=== PATIENT | female | born 1935 | race Caucasian/White ===

== ENCOUNTER 2016-06-16 14:31 | Outpatient (CLI) | payer MEDICARE, BC ==
[2009-04-07 04:56] VITALS: BP 143/79
[~2016-06-16] VITALS: Ht 162.6 cm; Wt 53.6 kg
[~2016-06-16 14:31] MED LIST: 00186-0370-20 IH; 00186-0372-20; 00186-0372-20 IH; ACIDOPHILUS PO; ACIDOPHILUS PRO1 CAP PO; AMITRIPTYLINE H10 M1 PO; AMLOPIDINE PO; ANTI-DIARRHEAL2 MG PO; ANTIVERT 12.512.5 MG PO; ASPIR-LOW81 MG PO; ASPIRIN 81M81 MG/TA2 PO; ASPIRIN E.C. 8181 MG PO; BREO IH; CALCITRIOL PO; CALCITROL; CALMOSEPTINE OI71 GM TP; CARAFATE S1 GM/10 ML PO; CARDIZEM 30MG T30 MG PO; CARDIZEM 60MG T60 MG PO; CARDIZEM120 MG PO; CEFTIN500 MG PO; CIPRO 500MG TA500 MG PO; CLOPIDOGREL PO; COBAL1000 MCG/M IM; COMBIVENT INH14.7 GM; COMBIVENT INH14.7 GM IH; CORDARONE200 MG/TAB PO; COUMADIN 5MG5 MG/TAB PO; CYANOCOBAL1000 MCG/1; CYANOCOBAL1000 MCG/1 SQ; CYANOJECT1000 MCG/M IM; DEMEROL 50M50 MG/TAB PO; DEMEROL50 MG/ML; DIPHENHYDRAMINE25 MG PO; DULCOLAX S10 MG/SUPP RC; ENGERIX B IM; ENGERIX-B20 MCG/ML IM; EPOGEN 2,002 MU/VIA1 IV; FOLIC ACID 11 MG/TA1 PO; FUROSEMIDE PO; GENTEAL 10 ML10 M1 OP; GENTEAL MILD 1515 M1 OP; GENTEAL OP; GENTEAL0.32 OP; HECTOROL0.5 MCG PO; IMODIUM 2MG CAPS2 MG PO; IRON; LASIX 40MG TABL40 MG PO; LEVAQUIN 2250 MG/TAB PO; LEVAQUIN 5500 MG/TA1 PO; LEVOTHYROXINE0.05 M1 PO; LEVOXYL0.05 MG PO; LIQUID MAGNESI400 MG PO; LOPRESSOR 225 MG/TAB PO; LOPRESSOR 550 MG/TAB PO; LOPRESSOR PO; LOPRESSOR100 MG PO; LOPRESSOR50 MG PO; MACRODANTIN; MAG-OX 400400 MG/TAB PO; MAGNESIUM OXID400 MG PO; MAGNESIUM OXID420 MG PO; MAGNESIUM OXIDE; MAGNESIUM OXIDE PO; MAGOX 400241.3 MG PO; MEPEREDINE50 MG PO; MEPERIDINE HCL50 MG PO; MILK OF MA400 MG/51 PO; MIRALAX PA17 GM/Dose PO; MONUROL 3 GM3 G/PKT PO; MYCELEX10 MG/TAB PO; NEPHROCAP PO; NEXIUM 40MG40 MG PO; NEXIUM PO; NEXIUM40 MG PO; NITRO-DUR0.4 MG/PAT TD; NITROQUICK0.4 MG SL; NITROSTAT0.4 MG/TAB SL; NORCO 325 MG-51 TAB PO; NORVASC 10MG10 MG PO; NORVASC10 MG PO; PACERONE400 MG PO; PHENERGAN 25 TA25 MG PO; PLAVIX 75MG TAB75 MG PO; POLY IRON PN1 TAB PO; POLY-IRON PO; PRILOSEC 20MG20 MG PO; PROLIA60 MG/ML SQ; Q-VAR INH; QUESTRAN4 GM/9 GM PO; REGLAN 5MG T5 MG/TAB PO; SYMBICORT1 AE2 IH; SYNTHROID0.05 MG PO; SYNTHROID0.05 MG/TA PO; SYSTANE LUBRICAN5 ML OP; THEOPHYLLINE; THEOPHYLLINE E100 MG PO; THYROID 0.23%1 POW; TIROSINT50 MCG PO; TOPROL XL 50MG50 MG PO; TOPROL XL100 MG PO; TOPROL XL50 MG PO; TUMS500 MG PO; TYLENOL 325MG325 MG PO; TYLENOL 500MG500 MG PO; ULTRAM 50MG TAB50 MG PO; VITAMIN B1100 MCG/ML IM; VITAMIN B11000 MCG/M IM; VITAMIN C BUFF500 MG PO; VITAMIN C500 MG PO; VITAMIN D PO; VITAMIN D1000 IU PO; VITAMIN D31 LIQ; VITAMIN D31 LIQ PO; VITAMIN D8000 IU/ML PO; XANAX .25M0.25 MG/TA PO; XOPENEX HF0.045 MG/A IH; ZEMPLAR1 MCG PO; ZOFRAN 4MG T4 MG/TAB PO; ZOFRAN ODT4 MG PO; ZOFRAN8 MG PO; ZUPLENZ4 M1 PO; ZYVOX 600MG600 MG PO; [UNRECOGNIZED DRUG - CODE] IV; [UNRECOGNIZED DRUG - CODE] IV; [UNRECOGNIZED DRUG - MIXTURE]; [UNRECOGNIZED DRUG - OTHER]; [UNRECOGNIZED DRUG - OTHER] TP
[2016-06-16 15:15] VITALS: BP 125/58; PULSE 85; TEMP 98.3
== END 2016-06-16 16:11 | disposition home or self-care (01) ==
LOC: EUO 14:31
DX: Z45.2 Encounter for adjustment and management of vascular access device (principal)
CPT/HCPCS: J1644

== ENCOUNTER → 2016-06-21 | Outpatient (CLI) | payer MEDICARE, BC ==
[~2016-06-21] MED LIST changes: +IBU400 MG PO; +SPIRIVA RE2.5 MCG/Ac IH
== END ==
LOC: COL.PUL 15:00
DX: R06.02 Shortness of breath (principal)

== ENCOUNTER 2016-06-28 00:11 | Inpatient (IN) | payer MEDICARE, BC ==
[2016-06-28] VITALS (7 sets, daily range): BP systolic 103–150; BP diastolic 50–90; PULSE 81–97; TEMP 97–99.6
[~2016-06-28] VITALS: Ht 162.6 cm; Wt 54.1 kg
[~2016-06-28 00:11] MED LIST changes: -IBU400 MG PO; -SPIRIVA RE2.5 MCG/Ac IH
[2016-06-28 01:03] LABS: BASO % 0.3 % (0.0-2.0); EOS % 0.9 % (0-4.0); GRAN # 2.8 (1.4-6.5); GRAN % 80.3 % (42.2-75.2); HEMATOCRIT 24.4 % (37.0-47.0); HEMOGLOBIN 8.3 g/dl (12.5-16.0); LYMPH # 0.2 (1.2-3.4); LYMPH % 6.8 % (20.0-51.0); MEAN CELL VOLUME 103 fl (80.0-100.0); MEAN CORPUSCULAR HEMOGLOBIN 35 pg (27.0-31.0); MEAN CORPUSCULAR HGB CONC 34 g/dl (33.0-37.0); MEAN PLATELET VOLUME 10.4 fl (7.4-10.4); MONO # 0.4 (0.1-0.6); MONO % 11.1 % (1.7-9.3); PLATELET COUNT 85 K/mm3 (130-400); RED BLOOD COUNT 2.38 M/mm3 (4.10-5.30); REDCELL DISTRIBUTION WIDTH-CV 12.9 % (11.5-14.5); WHITE BLOOD COUNT 3.5 K/mm3 (4.8-10.8)
[2016-06-28 01:39] LABS: ADJUSTED CALCIUM 9.1 mg/dL (8.4-10.2); ALANINE AMINOTRANSFERASE 35 U/L (9-52); ALBUMIN 3.7 gm/dL (3.5-5.0); ALKALINE PHOSPHATASE 120 U/L (50-136); ANION GAP 11 mmol/L (7-16); BILIRUBIN,TOTAL 0.8 mg/dL (0.0-1.0); BLOOD UREA NITROGEN 26 mg/dL (7-17); CALCIUM 8.9 mg/dL (8.4-10.2); CARBON DIOXIDE 35 mmol/L (22-30); CHLORIDE 92 mmol/L (98-107); CREATININE, serum 2.45 mg/dL (0.52-1.25); GLUCOSE 107 mg/dL (74-106); MAGNESIUM 1.7 mg/dL (1.6-2.3); PHOSPHOROUS 3.3 mg/dL (2.5-4.5); POTASSIUM 3.9 mmol/L (3.4-5.0); SODIUM 138 mmol/L (137-145); TOTAL PROTEIN 7.1 gm/dL (6.4-8.2)
[2016-06-28 01:46] LABS: C-REACTIVE PROTEIN < 0.5 mg/dL (0.0-0.9)
[2016-06-28 01:52] LABS: PH 8 (5-8); SQUAMOUS EPITHELIAL None Seen /hpf; URINE APPEARANCE Cloudy; URINE BACTERIA Rare /hpf; URINE BILIRUBIN Negative (NEGATIVE); URINE BLOOD 1+ (NEGATIVE); URINE COLOR Yellow; URINE GLUCOSE Negative (NEGATIVE); URINE KETONE Negative (NEGATIVE); URINE UROBILINOGEN Negative (NEGATIVE)
[2016-06-28] MEDS ORDERED: 00186-0370-20 IH (02:28)
[2016-06-29 02:29] VITALS: BP 108/47; PULSE 89; TEMP 98.5
[2016-06-29 07:49] LABS: BASO % 0.2 % (0.0-2.0); EOS # 0.1 (0.0-0.7); EOS % 1.6 % (0-4.0); GRAN # 3.4 (1.4-6.5); GRAN % 77.4 % (42.2-75.2); LYMPH # 0.4 (1.2-3.4); LYMPH % 8.8 % (20.0-51.0); MEAN CELL VOLUME 105 fl (80.0-100.0); MEAN CORPUSCULAR HGB CONC 33 g/dl (33.0-37.0); MEAN PLATELET VOLUME 10.6 fl (7.4-10.4); MONO # 0.5 (0.1-0.6); MONO % 11.5 % (1.7-9.3); PLATELET COUNT 93 K/mm3 (130-400); RED BLOOD COUNT 2.35 M/mm3 (4.10-5.30); REDCELL DISTRIBUTION WIDTH-CV 13.1 % (11.5-14.5); WHITE BLOOD COUNT 4.4 K/mm3 (4.8-10.8)
[2016-06-29 08:00] LABS: HEMATOCRIT 24.6 % (37.0-47.0); HEMOGLOBIN 8.1 g/dl (12.5-16.0); MEAN CORPUSCULAR HEMOGLOBIN 34 pg (27.0-31.0)
[2016-06-29 08:01] LABS: ALBUMIN 3.5 gm/dL (3.5-5.0); CALCIUM 8.7 mg/dL (8.4-10.2); CREATININE, serum 2.4 mg/dL (0.52-1.25); MAGNESIUM 1.8 mg/dL (1.6-2.3); POTASSIUM 3.3 mmol/L (3.4-5.0)
[2016-06-29 09:43] VITALS: BP 104/40; PULSE 87; TEMP 97.2
[2016-06-29 12:28] VITALS: BP 105/53; PULSE 88; TEMP 97.8
[2016-06-29 15:46] VITALS: BP 103/47; PULSE 85; TEMP 97.8
[2016-06-29 19:43] VITALS: BP 108/52; PULSE 86; TEMP 98.9
[2016-06-29 23:30] VITALS: BP 146/68; PULSE 84; TEMP 98.6
[2016-06-30] VITALS (9 sets, daily range): BP systolic 85–155; BP diastolic 44–75; PULSE 49–89; TEMP 97.1–99.9
[2016-06-30 07:44] LABS: BASO % 0.4 % (0.0-2.0); EOS # 0.1 (0.0-0.7); EOS % 3.4 % (0-4.0); GRAN # 1.7 (1.4-6.5); GRAN % 63.1 % (42.2-75.2); LYMPH # 0.4 (1.2-3.4); LYMPH % 15.4 % (20.0-51.0); MEAN CELL VOLUME 107 fl (80.0-100.0); MEAN CORPUSCULAR HGB CONC 33 g/dl (33.0-37.0); MEAN PLATELET VOLUME 11.1 fl (7.4-10.4); MONO # 0.5 (0.1-0.6); MONO % 17.3 % (1.7-9.3); PLATELET COUNT 86 K/mm3 (130-400); RED BLOOD COUNT 2.13 M/mm3 (4.10-5.30); REDCELL DISTRIBUTION WIDTH-CV 12.9 % (11.5-14.5); WHITE BLOOD COUNT 2.7 K/mm3 (4.8-10.8)
[2016-06-30 08:00] LABS: ALBUMIN 3.2 gm/dL (3.5-5.0); CALCIUM 8.4 mg/dL (8.4-10.2); CREATININE, serum 3.83 mg/dL (0.52-1.25); PHOSPHOROUS 5.3 mg/dL (2.5-4.5); POTASSIUM 3.8 mmol/L (3.4-5.0)
[2016-06-30 08:04] LABS: HEMATOCRIT 22.8 % (37.0-47.0); HEMOGLOBIN 7.4 g/dl (12.5-16.0); MEAN CORPUSCULAR HEMOGLOBIN 35 pg (27.0-31.0)
[2016-06-30 09:50] LABS: MAGNESIUM 1.7 mg/dL (1.6-2.3)
[2016-06-30 12:37] LABS: RETIC % 2.7 % (0.5-3.52)
[2016-07-01 00:39] VITALS: BP 137/73; PULSE 80; TEMP 96.6
[2016-07-01 03:43] VITALS: BP 128/65; PULSE 82; TEMP 96.8
[2016-07-01 07:35] LABS: MEAN CORPUSCULAR HGB CONC 34 g/dl (33.0-37.0); MEAN PLATELET VOLUME 10.8 fl (7.4-10.4); PLATELET COUNT 86 K/mm3 (130-400); RED BLOOD COUNT 3.04 M/mm3 (4.10-5.30); REDCELL DISTRIBUTION WIDTH-CV 16.9 % (11.5-14.5); WHITE BLOOD COUNT 3.3 K/mm3 (4.8-10.8)
[2016-07-01 07:43] LABS: ALBUMIN 3.3 gm/dL (3.5-5.0); CALCIUM 8.7 mg/dL (8.4-10.2); PHOSPHOROUS 6.2 mg/dL (2.5-4.5); POTASSIUM 3.9 mmol/L (3.4-5.0)
[2016-07-01 07:57] LABS: CREATININE, serum 4.72 mg/dL (0.52-1.25)
[2016-07-01 08:04] LABS: HEMATOCRIT 29.5 % (37.0-47.0); HEMOGLOBIN 10.1 g/dl (12.5-16.0); MEAN CELL VOLUME 97 fl (80.0-100.0); MEAN CORPUSCULAR HEMOGLOBIN 33 pg (27.0-31.0)
[2016-07-01 08:05] LABS: ADD PATHOLOGY DIFF REVIEW NO
[2016-07-01 09:01] LABS: BAND 5 % (0-10); PLATELET ESTIMATE DECREASED (NORMAL)
[2016-07-01 09:02] LABS: ANISOCYTOSIS 1+
[2016-07-01 09:05] LABS: EOSINOPHIL 2 % (0-4); NEUTROPHILS 66 % (42.0-75.2); TOTAL CELLS COUNTED 100
[2016-07-01 10:43] VITALS: BP 130/56; PULSE 78
[2016-07-01 13:12] LABS: ALBUMIN FRACTION 3.1 g/dL (2.6-4.5); ALPHA 1 FRACTION 0.4 g/dL (0.3-0.5); ALPHA 1 PERCENTAGE 6.5 % (3.4-8.3); ALPHA 2 FRACTION 0.7 g/dL (0.6-1.2); ALPHA 2 PERCENTAGE 12.1 % (8.4-17.5); BETA 1 FRACTION 0.3 g/dL (0.4-0.6); BETA 1 PERCENTAGE 5.3 % (5.4-8.9); BETA 2 FRACTION 0.3 g/dL (0.2-0.5); BETA 2 PERCENTAGE 5.2 % (3.8-7.7); GAMMA PERCENTAGE 17.9 % (8.1-23.0); SERUM PROTEIN TOTAL 5.8 g/dL (6.0-7.6)
[2016-07-01 16:16] VITALS: BP 118/54; PULSE 82; TEMP 98.4
[2016-07-01 19:51] VITALS: BP 138/73; PULSE 98; TEMP 98.4
[2016-07-02 00:09] VITALS: BP 161/71; PULSE 84; TEMP 98.2
[2016-07-02 03:44] VITALS: BP 149/65; PULSE 84; TEMP 98.6
[2016-07-02 07:45] LABS: BASO % 0.4 % (0.0-2.0); EOS # 0.1 (0.0-0.7); EOS % 4.4 % (0-4.0); GRAN # 1.6 (1.4-6.5); GRAN % 60.4 % (42.2-75.2); LYMPH # 0.5 (1.2-3.4); LYMPH % 18.5 % (20.0-51.0); MEAN CELL VOLUME 100 fl (80.0-100.0); MEAN CORPUSCULAR HGB CONC 33 g/dl (33.0-37.0); MEAN PLATELET VOLUME 10.6 fl (7.4-10.4); MONO # 0.4 (0.1-0.6); MONO % 15.9 % (1.7-9.3); PLATELET COUNT 108 K/mm3 (130-400); RED BLOOD COUNT 3.13 M/mm3 (4.10-5.30); REDCELL DISTRIBUTION WIDTH-CV 16.6 % (11.5-14.5); WHITE BLOOD COUNT 2.7 K/mm3 (4.8-10.8)
[2016-07-02 08:03] VITALS: BP 111/57; PULSE 78; TEMP 97.9
[2016-07-02 08:07] LABS: HEMATOCRIT 31.3 % (37.0-47.0); HEMOGLOBIN 10.3 g/dl (12.5-16.0); MEAN CORPUSCULAR HEMOGLOBIN 33 pg (27.0-31.0)
[2016-07-02 08:11] LABS: ALBUMIN 3.3 gm/dL (3.5-5.0); CALCIUM 8.7 mg/dL (8.4-10.2); CREATININE, serum 3.41 mg/dL (0.52-1.25); PHOSPHOROUS 4.3 mg/dL (2.5-4.5); POTASSIUM 3.9 mmol/L (3.4-5.0)
[2016-07-02 08:49] LABS: MAGNESIUM 1.7 mg/dL (1.6-2.3)
[2016-07-02 12:38] VITALS: BP 155/73; PULSE 80; TEMP 98.5
[2016-07-02] MEDS ORDERED: LEVAQUIN 5500 MG/TA1 PO (13:21)
[2016-07-02 15:24] LABS: KAPPA FREE LIGHT CHAIN-SERUM 16.4 mg/dL (()); KAPPA LAMBDA RATIO 1.86 (())
== END 2016-07-02 14:39 | disposition home or self-care (01) | DRG 689 ==
LOC: COL.ER 00:11 → MEDICAL 01:17
PROVIDERS: Emergency Medicine; Internal Medicine Nephrology
PROC: 5A1D60Z (ICD-10-PCS; principal; 2016-06-29)
DX: N39.0 Urinary tract infection, site not specified (principal); N18.6 End stage renal disease; I12.0 Hypertensive chronic kidney disease with stage 5 chronic kidney disease or end stage renal disease; K52.0 Gastroenteritis and colitis due to radiation; D61.818 Other pancytopenia; E46 Unspecified protein-calorie malnutrition; E03.9 Hypothyroidism, unspecified; Z88.0 Allergy status to penicillin; N13.30 Unspecified hydronephrosis; B96.1 Klebsiella pneumoniae [K. pneumoniae] as the cause of diseases classified elsewhere; D64.9 Anemia, unspecified; Z68.20 Body mass index [BMI] 20.0-20.9, adult; Z93.3 Colostomy status; Z99.2 Dependence on renal dialysis; Z85.41 Personal history of malignant neoplasm of cervix uteri
CPT/HCPCS: J0882; J1956; J2175; J2270; J2405; J2550; J2916; J7050; P9016

== ENCOUNTER 2016-08-11 14:54 | Outpatient (CLI) | payer MEDICARE, BC ==
[2009-04-07 04:56] VITALS: BP 143/79
[~2016-08-11] VITALS: Ht 162.6 cm; Wt 55.0 kg
[2016-08-11 15:30] VITALS: BP 127/59; PULSE 99; TEMP 97.7
== END 2016-08-11 15:31 | disposition home or self-care (01) ==
LOC: EUO 14:54
DX: Z45.2 Encounter for adjustment and management of vascular access device (principal)
CPT/HCPCS: J1644

== ENCOUNTER 2016-08-23 10:25 | Inpatient (IN) | payer MEDICARE, BC ==
[~2016-08-23] VITALS: Ht 162.6 cm; Wt 55.1 kg
[2016-08-23] MEDS ORDERED: SPIRIVA RE2.5 MCG/Ac IH (13:54)
[2016-08-23 14:18] VITALS: BP 128/80; PULSE 83; TEMP 96.9
[2016-08-23 16:16] VITALS: BP 137/65; PULSE 83; TEMP 96.5
[2016-08-23 16:27] LABS: BASO % 0.5 % (0.0-2.0); EOS % 0.5 % (0-4.0); GRAN # 3.3 (1.4-6.5); GRAN % 78.3 % (42.2-75.2); LYMPH # 0.5 (1.2-3.4); LYMPH % 11.2 % (20.0-51.0); MEAN CELL VOLUME 99 fl (80.0-100.0); MEAN CORPUSCULAR HGB CONC 35 g/dl (33.0-37.0); MEAN PLATELET VOLUME 11.1 fl (7.4-10.4); MONO # 0.4 (0.1-0.6); PLATELET COUNT 79 K/mm3 (130-400); RED BLOOD COUNT 2.55 M/mm3 (4.10-5.30); REDCELL DISTRIBUTION WIDTH-CV 13.3 % (11.5-14.5); WHITE BLOOD COUNT 4.2 K/mm3 (4.8-10.8)
[2016-08-23 16:33] LABS: HEMATOCRIT 25.2 % (37.0-47.0); HEMOGLOBIN 8.9 g/dl (12.5-16.0); MEAN CORPUSCULAR HEMOGLOBIN 35 pg (27.0-31.0)
[2016-08-23 16:34] LABS: ADJUSTED CALCIUM 9.1 mg/dL (8.4-10.2); ALBUMIN 3.7 gm/dL (3.5-5.0); BILIRUBIN,TOTAL 0.6 mg/dL (0.0-1.0); CALCIUM 8.9 mg/dL (8.4-10.2); POTASSIUM 3.5 mmol/L (3.4-5.0); TOTAL PROTEIN 6.7 gm/dL (6.4-8.2)
[2016-08-23 16:36] LABS: CREATININE, serum 6.12 mg/dL (0.52-1.25)
[2016-08-23 17:11] LABS: MAGNESIUM 1.6 mg/dL (1.6-2.3); PHOSPHOROUS 6.8 mg/dL (2.5-4.5)
[2016-08-23 19:48] VITALS: BP 139/63; PULSE 94; TEMP 97.4
[2016-08-23 23:48] VITALS: BP 125/75; PULSE 78; TEMP 97.6
[2016-08-24 04:03] VITALS: BP 124/61; PULSE 70; TEMP 97.7
[2016-08-24 07:58] LABS: ALBUMIN 3.7 gm/dL (3.5-5.0); CALCIUM 8.6 mg/dL (8.4-10.2); PHOSPHOROUS 7.5 mg/dL (2.5-4.5); POTASSIUM 3.6 mmol/L (3.4-5.0)
[2016-08-24 08:01] LABS: CREATININE, serum 6.49 mg/dL (0.52-1.25)
[2016-08-24 08:19] VITALS: BP 113/91; PULSE 86; TEMP 96.5
[2016-08-24 12:28] VITALS: BP 110/71; PULSE 74; TEMP 95.9
[2016-08-24 16:25] VITALS: BP 133/63; PULSE 89; TEMP 97.6
[2016-08-24 19:27] VITALS: BP 145/77; PULSE 83; TEMP 98.4
[2016-08-25] VITALS (17 sets, daily range): BP systolic 108–156; BP diastolic 48–86; PULSE 91–105; TEMP 96.5–97.8
[2016-08-25 06:14] LABS: ALBUMIN 3.6 gm/dL (3.5-5.0); CALCIUM 8.2 mg/dL (8.4-10.2); PHOSPHOROUS 7.1 mg/dL (2.5-4.5); POTASSIUM 3.9 mmol/L (3.4-5.0)
[2016-08-25 06:19] LABS: CREATININE, serum 7.05 mg/dL (0.52-1.25)
[2016-08-25 08:12] LABS: INR 1.1 (0.8-3.0); PROTHROMBIN TIME 12.2 SECONDS (9.7-12.8)
[2016-08-26 02:48] VITALS: BP 124/59; PULSE 91; TEMP 98.5
[2016-08-26 08:10] LABS: ALBUMIN 3.6 gm/dL (3.5-5.0); CALCIUM 8.6 mg/dL (8.4-10.2); CREATININE, serum 3.79 mg/dL (0.52-1.25); PHOSPHOROUS 4.9 mg/dL (2.5-4.5); POTASSIUM 3.2 mmol/L (3.4-5.0)
[2016-08-26 08:35] VITALS: BP 140/70; PULSE 65; TEMP 97.6
[2016-08-26 13:32] VITALS: BP 119/56; PULSE 89; TEMP 98.1
[2016-08-26 16:36] VITALS: BP 115/60; PULSE 101; TEMP 97.6
[2016-08-26 20:49] VITALS: BP 117/56; PULSE 91; TEMP 98.6
[2016-08-26 23:32] VITALS: BP 126/60; PULSE 87; TEMP 98.5
[2016-08-27 04:43] VITALS: BP 110/72; PULSE 88; TEMP 98.5
[2016-08-27 06:39] LABS: ALBUMIN 3.6 gm/dL (3.5-5.0); CALCIUM 8.5 mg/dL (8.4-10.2); PHOSPHOROUS 6.4 mg/dL (2.5-4.5); POTASSIUM 3.6 mmol/L (3.4-5.0)
[2016-08-27 06:55] LABS: CREATININE, serum 5.2 mg/dL (0.52-1.25)
== END 2016-08-27 13:05 | disposition home or self-care (01) | DRG 694 ==
LOC: MEDICAL 10:25
PROVIDERS: Internal Medicine Nephrology; Radiology Diagnostic Radiology
PROC: 5A1D60Z (ICD-10-PCS; 2016-08-24)
PROC: 0T9030Z Drainage of Right Kidney with Drainage Device, Percutaneous Approach (ICD-10-PCS; principal; 2016-08-25)
DX: N13.39 Other hydronephrosis (principal); I12.0 Hypertensive chronic kidney disease with stage 5 chronic kidney disease or end stage renal disease; E44.0 Moderate protein-calorie malnutrition; N18.6 End stage renal disease; Z99.2 Dependence on renal dialysis; D63.1 Anemia in chronic kidney disease; I25.10 Atherosclerotic heart disease of native coronary artery without angina pectoris; I48.0 Paroxysmal atrial fibrillation; Z85.038 Personal history of other malignant neoplasm of large intestine; Z93.3 Colostomy status
CPT/HCPCS: C1729; J2250; J2400; J2405; J3010; Q9967

== ENCOUNTER 2016-10-06 14:32 | Outpatient (CLI) | payer MEDICARE, BC ==
[2009-04-07 04:56] VITALS: BP 143/79
[~2016-10-06] VITALS: Ht 162.6 cm; Wt 55.9 kg
[~2016-10-06 14:32] MED LIST changes: +SPIRIVA RE2.5 MCG/Ac IH
[2016-10-06 14:50] VITALS: BP 99/52; PULSE 66; TEMP 98.3
== END 2016-10-06 15:14 | disposition home or self-care (01) ==
LOC: EUO 14:32
DX: N18.6 End stage renal disease (principal); C18.9 Malignant neoplasm of colon, unspecified
CPT/HCPCS: J1644

== ENCOUNTER 2016-10-15 23:19 | Inpatient (IN) | payer MEDICARE, BC ==
[~2016-10-15] VITALS: Ht 162.6 cm; Wt 58.0 kg
[2016-10-16 00:45] LABS: BASO % 0.6 % (0.0-2.0); EOS % 0.8 % (0-4.0); GRAN # 2.6 (1.4-6.5); GRAN % 72.7 % (42.2-75.2); LYMPH # 0.4 (1.2-3.4); LYMPH % 12.1 % (20.0-51.0); MEAN CELL VOLUME 104 fl (80.0-100.0); MEAN CORPUSCULAR HGB CONC 34 g/dl (33.0-37.0); MEAN PLATELET VOLUME 10.7 fl (7.4-10.4); MONO # 0.5 (0.1-0.6); MONO % 13.5 % (1.7-9.3); PLATELET COUNT 92 K/mm3 (130-400); RED BLOOD COUNT 2.23 M/mm3 (4.10-5.30); REDCELL DISTRIBUTION WIDTH-CV 12.9 % (11.5-14.5); WHITE BLOOD COUNT 3.6 K/mm3 (4.8-10.8)
[2016-10-16 00:46] LABS: HEMATOCRIT 23.2 % (37.0-47.0); HEMOGLOBIN 7.9 g/dl (12.5-16.0); MEAN CORPUSCULAR HEMOGLOBIN 35 pg (27.0-31.0)
[2016-10-16 00:53] LABS: ALBUMIN 3.8 gm/dL (3.5-5.0); BILIRUBIN,TOTAL 0.7 mg/dL (0.0-1.0); CALCIUM 7.8 mg/dL (8.4-10.2); CREATININE, serum 2.54 mg/dL (0.52-1.25); POTASSIUM 3.2 mmol/L (3.4-5.0); TOTAL PROTEIN 7.1 gm/dL (6.4-8.2)
[2016-10-16 01:06] LABS: PH 9 (5-8); SQUAMOUS EPITHELIAL None Seen /hpf; URINE APPEARANCE Hazy; URINE BACTERIA None Seen /hpf; URINE BILIRUBIN Negative (NEGATIVE); URINE BLOOD 3+ (NEGATIVE); URINE COLOR Yellow; URINE GLUCOSE Negative (NEGATIVE); URINE KETONE Negative (NEGATIVE); URINE RBC >50 /hpf; URINE UROBILINOGEN Negative (NEGATIVE); URINE WBC 20-50 /hpf
[2016-10-16 03:34] VITALS: BP 100/87; PULSE 99; TEMP 96.8
[2016-10-16] MEDS ORDERED: 00186-0370-20 IH (03:57)
[2016-10-16 07:41] VITALS: BP 110/52; PULSE 94; TEMP 98.1
[2016-10-16 11:25] VITALS: BP 133/74; PULSE 94; TEMP 98.4
[2016-10-16 14:47] LABS: ADJUSTED CALCIUM 7.7 mg/dL (8.4-10.2); ALBUMIN 3.3 gm/dL (3.5-5.0); BILIRUBIN,TOTAL 1.2 mg/dL (0.0-1.0); CALCIUM 7.1 mg/dL (8.4-10.2); CREATININE, serum 3.39 mg/dL (0.52-1.25); MAGNESIUM 1.6 mg/dL (1.6-2.3); PHOSPHOROUS 4.9 mg/dL (2.5-4.5); POTASSIUM 3.7 mmol/L (3.4-5.0); TOTAL PROTEIN 6.2 gm/dL (6.4-8.2)
[2016-10-16 15:20] VITALS: BP 120/61; PULSE 99; TEMP 97.9
[2016-10-16 21:09] VITALS: BP 100/79; PULSE 75; TEMP 98.2
[2016-10-16 22:46] VITALS: BP 116/55; PULSE 84
[2016-10-17 02:56] VITALS: BP 116/53; PULSE 94; TEMP 99.3
[2016-10-17 07:36] LABS: CALCIUM 6.7 mg/dL (8.4-10.2); POTASSIUM 3.7 mmol/L (3.4-5.0)
[2016-10-17 07:41] LABS: BASO % 0.3 % (0.0-2.0); EOS # 0.1 (0.0-0.7); EOS % 1.9 % (0-4.0); GRAN # 2.8 (1.4-6.5); GRAN % 75.2 % (42.2-75.2); LYMPH # 0.4 (1.2-3.4); LYMPH % 11.8 % (20.0-51.0); MEAN CELL VOLUME 106 fl (80.0-100.0); MEAN CORPUSCULAR HGB CONC 33 g/dl (33.0-37.0); MEAN PLATELET VOLUME 11.5 fl (7.4-10.4); MONO # 0.4 (0.1-0.6); MONO % 10.8 % (1.7-9.3); PLATELET COUNT 78 K/mm3 (130-400); RED BLOOD COUNT 2.04 M/mm3 (4.10-5.30); REDCELL DISTRIBUTION WIDTH-CV 12.8 % (11.5-14.5); WHITE BLOOD COUNT 3.7 K/mm3 (4.8-10.8)
[2016-10-17 07:42] LABS: CREATININE, serum 4.35 mg/dL (0.52-1.25)
[2016-10-17 08:08] VITALS: BP 116/51; PULSE 83; TEMP 97
[2016-10-17 08:21] LABS: HEMATOCRIT 21.7 % (37.0-47.0); HEMOGLOBIN 7.2 g/dl (12.5-16.0); MEAN CORPUSCULAR HEMOGLOBIN 35 pg (27.0-31.0)
[2016-10-17 11:13] VITALS: BP 130/66; PULSE 95; TEMP 97.5
[2016-10-17 15:39] VITALS: BP 153/84; PULSE 97; TEMP 98.2
[2016-10-17 22:41] VITALS: BP 136/64; PULSE 97; TEMP 98.2
[2016-10-18] VITALS (10 sets, daily range): BP systolic 93–118; BP diastolic 42–82; PULSE 79–91; TEMP 96.9–99
[2016-10-18 07:09] LABS: EOS # 0.1 (0.0-0.7); EOS % 2.9 % (0-4.0); GRAN # 2.2 (1.4-6.5); GRAN % 71.2 % (42.2-75.2); LYMPH # 0.4 (1.2-3.4); LYMPH % 11.2 % (20.0-51.0); MEAN CELL VOLUME 107 fl (80.0-100.0); MEAN CORPUSCULAR HGB CONC 33 g/dl (33.0-37.0); MEAN PLATELET VOLUME 11.1 fl (7.4-10.4); MONO # 0.5 (0.1-0.6); MONO % 14.4 % (1.7-9.3); PLATELET COUNT 71 K/mm3 (130-400); RED BLOOD COUNT 1.79 M/mm3 (4.10-5.30); REDCELL DISTRIBUTION WIDTH-CV 12.7 % (11.5-14.5); WHITE BLOOD COUNT 3.1 K/mm3 (4.8-10.8)
[2016-10-18 07:16] LABS: HEMATOCRIT 19.2 % (37.0-47.0); HEMOGLOBIN 6.4 g/dl (12.5-16.0); MEAN CORPUSCULAR HEMOGLOBIN 36 pg (27.0-31.0)
[2016-10-18 07:21] LABS: CALCIUM 6.7 mg/dL (8.4-10.2); CREATININE, serum 2.53 mg/dL (0.52-1.25); POTASSIUM 3.6 mmol/L (3.4-5.0)
[2016-10-19] VITALS (12 sets, daily range): BP systolic 124–165; BP diastolic 63–99; PULSE 76–101; TEMP 96.3–98.1
[2016-10-19 07:58] LABS: BASO % 0.3 % (0.0-2.0); EOS # 0.1 (0.0-0.7); EOS % 1.7 % (0-4.0); GRAN # 2.6 (1.4-6.5); GRAN % 75.3 % (42.2-75.2); LYMPH # 0.3 (1.2-3.4); LYMPH % 9.5 % (20.0-51.0); MEAN CORPUSCULAR HGB CONC 33 g/dl (33.0-37.0); MEAN PLATELET VOLUME 10.8 fl (7.4-10.4); MONO # 0.4 (0.1-0.6); MONO % 12.6 % (1.7-9.3); PLATELET COUNT 82 K/mm3 (130-400); RED BLOOD COUNT 2.25 M/mm3 (4.10-5.30); REDCELL DISTRIBUTION WIDTH-CV 16.3 % (11.5-14.5); WHITE BLOOD COUNT 3.5 K/mm3 (4.8-10.8)
[2016-10-19 08:04] LABS: HEMATOCRIT 22.8 % (37.0-47.0); HEMOGLOBIN 7.6 g/dl (12.5-16.0); MEAN CELL VOLUME 101 fl (80.0-100.0); MEAN CORPUSCULAR HEMOGLOBIN 34 pg (27.0-31.0)
[2016-10-19 08:18] LABS: CALCIUM 6.3 mg/dL (8.4-10.2); PHOSPHOROUS 5.2 mg/dL (2.5-4.5); POTASSIUM 3.7 mmol/L (3.4-5.0)
[2016-10-19 08:37] LABS: CREATININE, serum 4.17 mg/dL (0.52-1.25)
[2016-10-20] VITALS (7 sets, daily range): BP systolic 101–133; BP diastolic 51–77; PULSE 76–104; TEMP 97.5–99.4
[2016-10-21 06:54] LABS: MEAN CELL VOLUME 98 fl (80.0-100.0); MEAN CORPUSCULAR HGB CONC 35 g/dl (33.0-37.0); MEAN PLATELET VOLUME 10.7 fl (7.4-10.4); PLATELET COUNT 104 K/mm3 (130-400); RED BLOOD COUNT 2.61 M/mm3 (4.10-5.30); REDCELL DISTRIBUTION WIDTH-CV 17.5 % (11.5-14.5); WHITE BLOOD COUNT 4.4 K/mm3 (4.8-10.8)
[2016-10-21 06:59] LABS: HEMATOCRIT 25.5 % (37.0-47.0); HEMOGLOBIN 8.8 g/dl (12.5-16.0); MEAN CORPUSCULAR HEMOGLOBIN 34 pg (27.0-31.0)
[2016-10-21 07:04] LABS: ALBUMIN 3.1 gm/dL (3.5-5.0); CALCIUM 6.2 mg/dL (8.4-10.2); PHOSPHOROUS 4.4 mg/dL (2.5-4.5)
[2016-10-21 07:07] LABS: CREATININE, serum 4.54 mg/dL (0.52-1.25)
[2016-10-21 07:08] LABS: POTASSIUM 2.8 mmol/L (3.4-5.0)
[2016-10-21 09:03] VITALS: BP 107/46; PULSE 87; TEMP 98
[2016-10-21 13:15] VITALS: BP 116/100; PULSE 92; TEMP 98.1
[2016-10-21] MEDS ORDERED: LEVAQUIN 5500 MG/TA1 PO (13:55)
== END 2016-10-21 15:10 | disposition home or self-care (01) | DRG 668 ==
LOC: COL.ER 23:19 → MEDICAL 10-16 01:35
PROVIDERS: Emergency Medicine; Internal Medicine; Internal Medicine Nephrology; Urology
PROC: 5A1D60Z (ICD-10-PCS; 2016-10-17)
PROC: BT1FZZZ Fluoroscopy of Left Kidney, Ureter and Bladder (ICD-10-PCS; 2016-10-19)
PROC: 0TBB8ZX Excision of Bladder, Via Natural or Artificial Opening Endoscopic, Diagnostic (ICD-10-PCS; principal; 2016-10-19 10:00)
PROC: 0TCB8ZZ Extirpation of Matter from Bladder, Via Natural or Artificial Opening Endoscopic (ICD-10-PCS; 2016-10-19 10:00)
DX: C67.0 Malignant neoplasm of trigone of bladder (principal); J18.9 Pneumonia, unspecified organism; N18.6 End stage renal disease; I12.0 Hypertensive chronic kidney disease with stage 5 chronic kidney disease or end stage renal disease; E44.0 Moderate protein-calorie malnutrition; N39.0 Urinary tract infection, site not specified; D61.818 Other pancytopenia; Z99.2 Dependence on renal dialysis; D63.1 Anemia in chronic kidney disease; J45.909 Unspecified asthma, uncomplicated; I25.10 Atherosclerotic heart disease of native coronary artery without angina pectoris; I48.0 Paroxysmal atrial fibrillation; Z93.2 Ileostomy status; Z87.891 Personal history of nicotine dependence; Z95.5 Presence of coronary angioplasty implant and graft
CPT/HCPCS: OP; C1769; J0882; J1644; J1956; J2270; J2405; J2550; J2704; J2916; J7050; P9016; Q9967

== ENCOUNTER 2016-11-24 15:14 | Outpatient (CLI) | payer MEDICARE, BC ==
[2009-04-07 04:56] VITALS: BP 143/79
[2016-11-24 16:02] VITALS: BP 116/37; PULSE 78; TEMP 98.1
== END 2016-11-24 16:30 | disposition home or self-care (01) ==
LOC: EUO 15:14
DX: C18.9 Malignant neoplasm of colon, unspecified (principal); N18.6 End stage renal disease
CPT/HCPCS: J1644

== ENCOUNTER 2017-01-02 14:01 | Inpatient (IN) | payer MEDICARE, BC ==
[~2017-01-02] VITALS: Ht 162.6 cm; Wt 56.7 kg
[2017-01-02 15:43] LABS: MEAN CELL VOLUME 100 fl (80.0-100.0); MEAN CORPUSCULAR HGB CONC 35 g/dl (33.0-37.0); MEAN PLATELET VOLUME 10.2 fl (7.4-10.4); PLATELET COUNT 115 K/mm3 (130-400); RED BLOOD COUNT 2.72 M/mm3 (4.10-5.30); WHITE BLOOD COUNT 5.8 K/mm3 (4.8-10.8)
[2017-01-02 15:50] LABS: ADD PATHOLOGY DIFF REVIEW NO; HEMATOCRIT 27.1 % (37.0-47.0); HEMOGLOBIN 9.6 g/dl (12.5-16.0); MEAN CORPUSCULAR HEMOGLOBIN 35 pg (27.0-31.0)
[2017-01-02 16:00] LABS: ADJUSTED CALCIUM 9.2 mg/dL (8.4-10.2); ALBUMIN 3.8 gm/dL (3.5-5.0); BILIRUBIN,TOTAL 0.7 mg/dL (0.0-1.0); MAGNESIUM 1.5 mg/dL (1.6-2.3); PHOSPHOROUS 5.7 mg/dL (2.5-4.5); POTASSIUM 3.1 mmol/L (3.4-5.0); TOTAL PROTEIN 7.3 gm/dL (6.4-8.2)
[2017-01-02 16:02] LABS: CREATININE, serum 6.43 mg/dL (0.52-1.25)
[2017-01-02 16:46] LABS: BAND 6 % (0-10)
[2017-01-02 16:47] LABS: NEUTROPHILS 82 % (42.0-75.2); PLATELET ESTIMATE DECREASED (NORMAL)
[2017-01-02 16:48] LABS: TOTAL CELLS COUNTED 100
[2017-01-02 18:37] LABS: PH 7 (5-8); SQUAMOUS EPITHELIAL None Seen /hpf; URINE APPEARANCE Turbid; URINE BACTERIA Many /hpf; URINE BILIRUBIN Negative (NEGATIVE); URINE BLOOD 1+ (NEGATIVE); URINE GLUCOSE Negative (NEGATIVE); URINE KETONE Negative (NEGATIVE); URINE RBC >50 /hpf; URINE UROBILINOGEN Negative (NEGATIVE)
[2017-01-02 18:38] LABS: URINE COLOR Yellow; URINE WBC >50 /hpf
[2017-01-02 21:18] VITALS: BP 140/83; PULSE 111; TEMP 99
[2017-01-03 00:58] VITALS: BP 140/69; PULSE 103; TEMP 97.9
[2017-01-03 03:47] VITALS: BP 135/52; PULSE 94; TEMP 98.1
[2017-01-03 06:30] LABS: BASO % 0.3 % (0.0-2.0); GRAN % 65.2 % (42.2-75.2); LYMPH # 0.4 (1.2-3.4); LYMPH % 12.6 % (20.0-51.0); MEAN CELL VOLUME 102 fl (80.0-100.0); MEAN CORPUSCULAR HGB CONC 34 g/dl (33.0-37.0); MONO # 0.6 (0.1-0.6); MONO % 19.9 % (1.7-9.3); PLATELET COUNT 103 K/mm3 (130-400); RED BLOOD COUNT 2.47 M/mm3 (4.10-5.30); REDCELL DISTRIBUTION WIDTH-CV 13.2 % (11.5-14.5)
[2017-01-03 06:34] LABS: HEMATOCRIT 25.3 % (37.0-47.0); HEMOGLOBIN 8.5 g/dl (12.5-16.0); MEAN CORPUSCULAR HEMOGLOBIN 34 pg (27.0-31.0)
[2017-01-03 06:43] LABS: CALCIUM 8.1 mg/dL (8.4-10.2)
[2017-01-03 06:46] LABS: CREATININE, serum 6.85 mg/dL (0.52-1.25)
[2017-01-03 07:20] VITALS: BP 115/68; PULSE 86; TEMP 97.3
[2017-01-03 15:44] VITALS: BP 111/98; PULSE 84; TEMP 98.4
[2017-01-03 19:20] VITALS: BP 137/65; PULSE 92; TEMP 98.8
[2017-01-04 00:06] VITALS: BP 128/72; PULSE 95; TEMP 98.3
[2017-01-04 03:48] VITALS: BP 124/68; PULSE 88; TEMP 97.6
[2017-01-04 07:06] LABS: HEMATOCRIT 24.7 % (37.0-47.0); MEAN CELL VOLUME 107 fl (80.0-100.0); MEAN CORPUSCULAR HEMOGLOBIN 35 pg (27.0-31.0); MEAN CORPUSCULAR HGB CONC 32 g/dl (33.0-37.0); MEAN PLATELET VOLUME 10.2 fl (7.4-10.4); PLATELET COUNT 94 K/mm3 (130-400); REDCELL DISTRIBUTION WIDTH-CV 13.6 % (11.5-14.5); WHITE BLOOD COUNT 2.6 K/mm3 (4.8-10.8)
[2017-01-04 07:15] LABS: CALCIUM 7.9 mg/dL (8.4-10.2); CREATININE, serum 3.61 mg/dL (0.52-1.25); POTASSIUM 5.5 mmol/L (3.4-5.0)
[2017-01-04 07:16] VITALS: BP 106/47; PULSE 87; TEMP 97.7
[2017-01-04 07:30] LABS: BAND 3 % (0-10); BASOPHIL 1 % (0-2); EOSINOPHIL 3 % (0-4); METAMYELOCYTE 3 % (0-0); NEUTROPHILS 70 % (42.0-75.2); PLATELET ESTIMATE DECREASED (NORMAL); TOTAL CELLS COUNTED 100
[2017-01-04 07:31] LABS: ADD PATHOLOGY DIFF REVIEW YES
[2017-01-04 16:02] VITALS: BP 121/58; PULSE 98; TEMP 98.3
[2017-01-04 19:46] VITALS: BP 118/54; PULSE 99; TEMP 97.5
[2017-01-04 23:46] VITALS: BP 126/64; PULSE 98; TEMP 98.4
[2017-01-05 03:17] VITALS: BP 126/62; PULSE 85; TEMP 98.2
[2017-01-05 07:31] VITALS: BP 123/64; PULSE 84; TEMP 97.9
[2017-01-05 07:50] LABS: MEAN CELL VOLUME 108 fl (80.0-100.0); MEAN CORPUSCULAR HGB CONC 32 g/dl (33.0-37.0); MEAN PLATELET VOLUME 10.3 fl (7.4-10.4); PLATELET COUNT 93 K/mm3 (130-400); RED BLOOD COUNT 2.27 M/mm3 (4.10-5.30); REDCELL DISTRIBUTION WIDTH-CV 13.6 % (11.5-14.5)
[2017-01-05 07:54] LABS: CALCIUM 8.2 mg/dL (8.4-10.2); CREATININE, serum 3.15 mg/dL (0.52-1.25); POTASSIUM 4.1 mmol/L (3.4-5.0)
[2017-01-05 07:56] LABS: HEMATOCRIT 24.6 % (37.0-47.0); HEMOGLOBIN 7.9 g/dl (12.5-16.0); MEAN CORPUSCULAR HEMOGLOBIN 35 pg (27.0-31.0)
[2017-01-05 07:57] LABS: ADD PATHOLOGY DIFF REVIEW NO
[2017-01-05 08:15] LABS: PATHOLOGY DIFF REVIEW OK
[2017-01-05 09:13] LABS: BAND 7 % (0-10); EOSINOPHIL 1 % (0-4); NEUTROPHILS 71 % (42.0-75.2); PLATELET ESTIMATE DECREASED (NORMAL); TOTAL CELLS COUNTED 100
[2017-01-05 12:04] VITALS: BP 82/56; PULSE 84; TEMP 97.8
[2017-01-05 13:54] VITALS: BP 119/63
[2017-01-05 16:00] VITALS: BP 140/73; PULSE 94; TEMP 98
[2017-01-05] MEDS ORDERED: IBU400 MG PO (17:03)
== END 2017-01-05 17:40 | disposition home or self-care (01) | DRG 393 ==
LOC: COL.ER 14:01 → MEDICAL 19:11
PROVIDERS: Emergency Medicine; Internal Medicine
PROC: 5A1D60Z (ICD-10-PCS; principal; 2017-01-03)
DX: K91.3 Postprocedural intestinal obstruction (principal); N18.6 End stage renal disease; N39.0 Urinary tract infection, site not specified; N13.6 Pyonephrosis; I12.0 Hypertensive chronic kidney disease with stage 5 chronic kidney disease or end stage renal disease; E44.0 Moderate protein-calorie malnutrition; E87.6 Hypokalemia; Z99.2 Dependence on renal dialysis; Z85.41 Personal history of malignant neoplasm of cervix uteri; D63.1 Anemia in chronic kidney disease; I48.0 Paroxysmal atrial fibrillation; Z87.891 Personal history of nicotine dependence; I25.10 Atherosclerotic heart disease of native coronary artery without angina pectoris
CPT/HCPCS: J1170; J1644; J1650; J1956; J2270; J2405; J2550; J3010; J3480; J7040

== ENCOUNTER 2017-01-07 15:39 | Emergency (ER) | payer MEDICARE, BC ==
[2009-04-07 04:56] VITALS: BP 143/79
[~2017-01-07] VITALS: Ht 162.6 cm; Wt 58.2 kg
[~2017-01-07 15:39] MED LIST changes: +IBU400 MG PO
[2017-01-07 15:42] VITALS: TEMP 97.5
[2017-01-07 17:05] LABS: MEAN CELL VOLUME 105 fl (80.0-100.0); MEAN CORPUSCULAR HGB CONC 33 g/dl (33.0-37.0); MEAN PLATELET VOLUME 9.7 fl (7.4-10.4); PLATELET COUNT 107 K/mm3 (130-400); RED BLOOD COUNT 2.44 M/mm3 (4.10-5.30); REDCELL DISTRIBUTION WIDTH-CV 13.8 % (11.5-14.5); WHITE BLOOD COUNT 6.6 K/mm3 (4.8-10.8)
[2017-01-07 17:11] LABS: ADJUSTED CALCIUM 9.4 mg/dL (8.4-10.2); ALBUMIN 3.4 gm/dL (3.5-5.0); BILIRUBIN,TOTAL 0.5 mg/dL (0.0-1.0); CALCIUM 8.9 mg/dL (8.4-10.2); POTASSIUM 4.4 mmol/L (3.4-5.0); TOTAL PROTEIN 6.8 gm/dL (6.4-8.2)
[2017-01-07 17:16] LABS: CREATININE, serum 5.71 mg/dL (0.52-1.25); HEMATOCRIT 25.7 % (37.0-47.0); HEMOGLOBIN 8.4 g/dl (12.5-16.0); MEAN CORPUSCULAR HEMOGLOBIN 34 pg (27.0-31.0)
[2017-01-07 17:17] LABS: ADD PATHOLOGY DIFF REVIEW NO
[2017-01-07 17:36] LABS: BAND 6 % (0-10); BASOPHIL 1 % (0-2); EOSINOPHIL 1 % (0-4); NEUTROPHILS 83 % (42.0-75.2); TOTAL CELLS COUNTED 100
[2017-01-07 18:10] LABS: PH 7 (5-8); SQUAMOUS EPITHELIAL None Seen /hpf; URINE APPEARANCE Clear; URINE BACTERIA None Seen /hpf; URINE BILIRUBIN Negative (NEGATIVE); URINE BLOOD 1+ (NEGATIVE); URINE COLOR Yellow; URINE GLUCOSE 2+ (NEGATIVE); URINE KETONE Negative (NEGATIVE); URINE RBC 0-2 /hpf; URINE UROBILINOGEN Negative (NEGATIVE)
[2017-01-07 19:57] VITALS: BP 142/79; PULSE 92
== END 2017-01-07 19:59 | disposition home or self-care (01) ==
LOC: COL.ER 15:39
PROVIDERS: Emergency Medicine
DX: R11.2 Nausea with vomiting, unspecified (principal); R10.9 Unspecified abdominal pain; N18.6 End stage renal disease; Z99.2 Dependence on renal dialysis; Z93.3 Colostomy status
CPT/HCPCS: J2405; J2550; J3010

== ENCOUNTER 2017-02-07 09:34 | Day surgery (SDC) | payer MEDICARE, BC ==
[2009-04-07 04:56] VITALS: BP 143/79
[~2017-02-07] VITALS: Ht 162.6 cm; Wt 55.8 kg
[2017-02-07] VITALS (7 sets, daily range): BP systolic 115–142; BP diastolic 58–89; PULSE 80–101; TEMP 97.6–97.8
[2017-02-07] MEDS ORDERED: PHENERGAN 25 TA25 MG PO (10:40)
== END 2017-02-07 14:00 | disposition home or self-care (01) ==
LOC: SDCO 09:34
DX: T18.2XXA Foreign body in stomach, initial encounter (principal); K29.30 Chronic superficial gastritis without bleeding; K25.9 Gastric ulcer, unspecified as acute or chronic, without hemorrhage or perforation; I20.9 Angina pectoris, unspecified; J44.9 Chronic obstructive pulmonary disease, unspecified; K21.9 Gastro-esophageal reflux disease without esophagitis; E03.9 Hypothyroidism, unspecified; I12.9 Hypertensive chronic kidney disease with stage 1 through stage 4 chronic kidney disease, or unspecified chronic kidney disease; N18.9 Chronic kidney disease, unspecified; C53.9 Malignant neoplasm of cervix uteri, unspecified; C78.5 Secondary malignant neoplasm of large intestine and rectum; I48.91 Unspecified atrial fibrillation; F03.90 Unspecified dementia, unspecified severity, without behavioral disturbance, psychotic disturbance, mood disturbance, and anxiety; M19.90 Unspecified osteoarthritis, unspecified site; Z95.818 Presence of other cardiac implants and grafts; Z95.5 Presence of coronary angioplasty implant and graft; Z90.49 Acquired absence of other specified parts of digestive tract; Z99.2 Dependence on renal dialysis; Z87.891 Personal history of nicotine dependence; Z86.010 Personal history of colon polyps; Z86.73 Personal history of transient ischemic attack (TIA), and cerebral infarction without residual deficits
CPT/HCPCS: OP; J1644; J2405; J2704; J7030

== ENCOUNTER 2017-06-28 18:30 | Inpatient (IN) | payer MEDICARE, BC ==
[~2017-06-28] VITALS: Ht 162.6 cm; Wt 50.8 kg
[2017-06-28 19:10] LABS: COLLECTION METHOD CATHETER
[2017-06-28 19:24] LABS: BASO % 0.5 % (0.0-2.0); EOS % 0.5 % (0-4.0); GRAN # 3.2 (1.4-6.5); GRAN % 77.3 % (42.2-75.2); LYMPH # 0.3 (1.2-3.4); LYMPH % 8.4 % (20.0-51.0); MEAN CELL VOLUME 107 fl (80.0-100.0); MEAN CORPUSCULAR HGB CONC 32 g/dl (33.0-37.0); MEAN PLATELET VOLUME 10.3 fl (7.4-10.4); MONO # 0.5 (0.1-0.6); MONO % 12.3 % (1.7-9.3); PLATELET COUNT 129 K/mm3 (130-400); RED BLOOD COUNT 2.97 M/mm3 (4.10-5.30); REDCELL DISTRIBUTION WIDTH-CV 13.6 % (11.5-14.5)
[2017-06-28 19:25] LABS: HEMATOCRIT 31.8 % (37.0-47.0); HEMOGLOBIN 10.3 g/dl (12.5-16.0); MEAN CORPUSCULAR HEMOGLOBIN 35 pg (27.0-31.0)
[2017-06-28] MEDS ORDERED: RENVELA800 MG PO (19:32)
[2017-06-28] MEDS ORDERED: ERYTHROMYCIN ETHYLSUCCINATE PO (19:33)
[2017-06-28 19:35] LABS: ALBUMIN 3.9 gm/dL (3.5-5.0); BILIRUBIN,TOTAL 0.8 mg/dL (0.0-1.0); C-REACTIVE PROTEIN 4.6 mg/dL (0.0-0.9); CALCIUM 9.6 mg/dL (8.4-10.2); CREATININE, serum 1.73 mg/dL (0.52-1.25); MAGNESIUM 1.9 mg/dL (1.6-2.3); PHOSPHOROUS 1.9 mg/dL (2.5-4.5); POTASSIUM 3.2 mmol/L (3.4-5.0); TOTAL PROTEIN 7.3 gm/dL (6.4-8.2)
[2017-06-28] MEDS ORDERED: PROLIA60 MG/ML SQ (19:38)
[2017-06-28 19:50] LABS: PH 7 (5-8); URINE APPEARANCE Turbid; URINE BILIRUBIN Negative (NEGATIVE); URINE BLOOD 2+ (NEGATIVE); URINE COLOR Amber; URINE GLUCOSE Negative (NEGATIVE); URINE KETONE Trace (NEGATIVE); URINE LEUKOCYTE ESTERASE 3+ (NEGATIVE); URINE NITRATE Negative (NEGATIVE); URINE PROTEIN(semi-quant) 3+ (NEGATIVE); URINE UROBILINOGEN Negative (NEGATIVE)
[2017-06-28 20:00] LABS: URINE BACTERIA Moderate /hpf
[2017-06-28] MEDS ORDERED: NEPRO PO ×2 (22:10→22:24)
[2017-06-28 23:53] VITALS: BP 154/74; PULSE 99; TEMP 97.6
[2017-06-29 00:52] VITALS: BP 139/89; PULSE 95; TEMP 98.1
[2017-06-29 04:24] VITALS: BP 133/80; PULSE 86; TEMP 97.8
[2017-06-29 08:02] VITALS: BP 124/93; PULSE 86; TEMP 97.5
[2017-06-29 15:29] VITALS: BP 143/82; PULSE 95; TEMP 97.7
[2017-06-29 19:04] VITALS: BP 133/68; PULSE 87; TEMP 97.4
[2017-06-30 01:03] VITALS: BP 145/67; PULSE 87; TEMP 97.5
[2017-06-30 03:50] VITALS: BP 128/58; PULSE 84; TEMP 97.5
[2017-06-30 06:46] LABS: BASO % 0.4 % (0.0-2.0); EOS # 0.1 (0.0-0.7); EOS % 1.5 % (0-4.0); GRAN # 4.1 (1.4-6.5); GRAN % 75.8 % (42.2-75.2); LYMPH # 0.5 (1.2-3.4); LYMPH % 9.2 % (20.0-51.0); MEAN CELL VOLUME 109 fl (80.0-100.0); MEAN CORPUSCULAR HGB CONC 32 g/dl (33.0-37.0); MEAN PLATELET VOLUME 10.8 fl (7.4-10.4); MONO # 0.7 (0.1-0.6); MONO % 12.2 % (1.7-9.3); PLATELET COUNT 106 K/mm3 (130-400); RED BLOOD COUNT 2.71 M/mm3 (4.10-5.30); REDCELL DISTRIBUTION WIDTH-CV 13.7 % (11.5-14.5)
[2017-06-30 06:52] LABS: HEMATOCRIT 29.4 % (37.0-47.0); HEMOGLOBIN 9.4 g/dl (12.5-16.0); MEAN CORPUSCULAR HEMOGLOBIN 35 pg (27.0-31.0)
[2017-06-30 07:01] LABS: ALBUMIN 3.1 gm/dL (3.5-5.0); BILIRUBIN,TOTAL 0.3 mg/dL (0.0-1.0); POTASSIUM 3.6 mmol/L (3.4-5.0); TOTAL PROTEIN 6.1 gm/dL (6.4-8.2)
[2017-06-30 07:36] LABS: CREATININE, serum 3.92 mg/dL (0.52-1.25)
[2017-06-30 12:39] VITALS: BP 149/81; PULSE 79; TEMP 97.7
[2017-06-30 15:52] VITALS: BP 136/68; PULSE 76; TEMP 97.8
[2017-06-30 19:01] VITALS: BP 134/65; PULSE 99; TEMP 97.7
[2017-06-30 23:39] VITALS: BP 137/59; PULSE 76; TEMP 97.5
[2017-07-01 04:24] VITALS: BP 149/56; PULSE 71; TEMP 97
[2017-07-01 06:40] LABS: BASO % 0.4 % (0.0-2.0); EOS # 0.1 (0.0-0.7); EOS % 2.9 % (0-4.0); GRAN % 67.6 % (42.2-75.2); LYMPH # 0.6 (1.2-3.4); LYMPH % 13.3 % (20.0-51.0); MEAN CELL VOLUME 107 fl (80.0-100.0); MEAN CORPUSCULAR HGB CONC 32 g/dl (33.0-37.0); MEAN PLATELET VOLUME 10.5 fl (7.4-10.4); MONO # 0.7 (0.1-0.6); MONO % 14.7 % (1.7-9.3); PLATELET COUNT 105 K/mm3 (130-400); RED BLOOD COUNT 2.76 M/mm3 (4.10-5.30); REDCELL DISTRIBUTION WIDTH-CV 13.7 % (11.5-14.5)
[2017-07-01 06:55] LABS: BILIRUBIN,TOTAL 0.2 mg/dL (0.0-1.0); CALCIUM 8.9 mg/dL (8.4-10.2); CREATININE, serum 3.49 mg/dL (0.52-1.25); HEMATOCRIT 29.6 % (37.0-47.0); HEMOGLOBIN 9.6 g/dl (12.5-16.0); MEAN CORPUSCULAR HEMOGLOBIN 35 pg (27.0-31.0); POTASSIUM 3.4 mmol/L (3.4-5.0); TOTAL PROTEIN 6.1 gm/dL (6.4-8.2)
[2017-07-01 07:47] VITALS: BP 124/46; PULSE 85; TEMP 97.5
[2017-07-01 12:00] VITALS: BP 146/85; PULSE 85; TEMP 97
[2017-07-01 15:56] VITALS: BP 136/71; PULSE 79; TEMP 97.1
[2017-07-01 20:35] VITALS: BP 139/47; PULSE 82; TEMP 98.8
[2017-07-01 23:43] VITALS: BP 109/81; PULSE 78; TEMP 97.8
[2017-07-02 04:32] VITALS: BP 153/92; PULSE 79; TEMP 98.7
[2017-07-02 06:27] LABS: MEAN CELL VOLUME 108 fl (80.0-100.0); MEAN CORPUSCULAR HGB CONC 33 g/dl (33.0-37.0); MEAN PLATELET VOLUME 10.7 fl (7.4-10.4); PLATELET COUNT 95 K/mm3 (130-400); RED BLOOD COUNT 2.61 M/mm3 (4.10-5.30); REDCELL DISTRIBUTION WIDTH-CV 13.5 % (11.5-14.5)
[2017-07-02 06:30] LABS: ALBUMIN 2.8 gm/dL (3.5-5.0); BILIRUBIN,TOTAL 0.2 mg/dL (0.0-1.0); CALCIUM 9.1 mg/dL (8.4-10.2); POTASSIUM 3.2 mmol/L (3.4-5.0); TOTAL PROTEIN 5.9 gm/dL (6.4-8.2)
[2017-07-02 06:31] LABS: HEMATOCRIT 28.2 % (37.0-47.0); HEMOGLOBIN 9.3 g/dl (12.5-16.0); MEAN CORPUSCULAR HEMOGLOBIN 36 pg (27.0-31.0)
[2017-07-02 06:35] LABS: CREATININE, serum 4.65 mg/dL (0.52-1.25)
[2017-07-02 07:35] LABS: BAND 22 % (0-10); BASOPHIL 1 % (0-2); LYMPHOCYTE 10 % (20.0-51.0); NEUTROPHILS 67 % (42.0-75.2); NUCLEATED RED BLOOD CELL 1 (0-6); PLATELET ESTIMATE DECREASED (NORMAL)
[2017-07-02 08:13] VITALS: BP 139/84; PULSE 79; TEMP 97.7
[2017-07-02 11:37] VITALS: BP 121/69; PULSE 77; TEMP 97.7
[2017-07-02 15:45] VITALS: BP 124/74; PULSE 56; TEMP 97.1
[2017-07-02 19:27] VITALS: BP 123/62; PULSE 85; TEMP 97.4
[2017-07-02 23:27] VITALS: BP 129/63; PULSE 71; TEMP 98.3
[2017-07-03 03:28] VITALS: BP 129/55; PULSE 70; TEMP 98
[2017-07-03 06:56] LABS: MEAN CELL VOLUME 106 fl (80.0-100.0); MEAN CORPUSCULAR HGB CONC 33 g/dl (33.0-37.0); MEAN PLATELET VOLUME 10.9 fl (7.4-10.4); PLATELET COUNT 93 K/mm3 (130-400); RED BLOOD COUNT 2.69 M/mm3 (4.10-5.30); REDCELL DISTRIBUTION WIDTH-CV 13.6 % (11.5-14.5)
[2017-07-03 07:11] LABS: HEMATOCRIT 28.6 % (37.0-47.0); HEMOGLOBIN 9.3 g/dl (12.5-16.0); MEAN CORPUSCULAR HEMOGLOBIN 35 pg (27.0-31.0)
[2017-07-03 07:22] LABS: ALBUMIN 2.9 gm/dL (3.5-5.0); BILIRUBIN,TOTAL 0.2 mg/dL (0.0-1.0); CALCIUM 9.1 mg/dL (8.4-10.2); POTASSIUM 3.5 mmol/L (3.4-5.0)
[2017-07-03 07:25] LABS: CREATININE, serum 5.51 mg/dL (0.52-1.25)
[2017-07-03 10:37] LABS: BAND 2 % (0-10); EOSINOPHIL 3 % (0-4); HYPERSEGMENTED POLYS PRESENT; LYMPHOCYTE 4 % (20.0-51.0); NEUTROPHILS 81 % (42.0-75.2); PLATELET ESTIMATE DECREASED (NORMAL)
[2017-07-03 10:38] LABS: HYPOCHROMIA 1+
[2017-07-03 11:13] VITALS: BP 133/59; PULSE 80; TEMP 98.3
[2017-07-03 15:33] VITALS: BP 135/55; PULSE 87; TEMP 99
[2017-07-03 17:39] LABS: MAGNESIUM 1.7 mg/dL (1.6-2.3)
[2017-07-03 19:20] VITALS: BP 139/60; PULSE 86; TEMP 98.1
[2017-07-03 23:34] VITALS: BP 125/67; PULSE 82; TEMP 97.7
[2017-07-04 03:13] VITALS: BP 105/70; PULSE 75; TEMP 97.5
[2017-07-04 05:36] LABS: MEAN CELL VOLUME 109 fl (80.0-100.0); MEAN CORPUSCULAR HGB CONC 32 g/dl (33.0-37.0); MEAN PLATELET VOLUME 10.5 fl (7.4-10.4); PLATELET COUNT 73 K/mm3 (130-400); RED BLOOD COUNT 2.57 M/mm3 (4.10-5.30); REDCELL DISTRIBUTION WIDTH-CV 14.2 % (11.5-14.5)
[2017-07-04 05:38] LABS: HEMATOCRIT 27.9 % (37.0-47.0); MEAN CORPUSCULAR HEMOGLOBIN 35 pg (27.0-31.0)
[2017-07-04 05:48] LABS: BAND 2 % (0-10); BILIRUBIN,TOTAL 0.2 mg/dL (0.0-1.0); CALCIUM 8.6 mg/dL (8.4-10.2); CREATININE, serum 3.26 mg/dL (0.52-1.25); EOSINOPHIL 4 % (0-4); LYMPHOCYTE 28 % (20.0-51.0); NEUTROPHILS 58 % (42.0-75.2); NUCLEATED RED BLOOD CELL 1 (0-6); POTASSIUM 3.7 mmol/L (3.4-5.0); ROULEAUX 1+; STOMATOCYTE 1+
[2017-07-04 05:49] LABS: ANISOCYTOSIS 1+; POIKILOCYTOSIS 2+; POLYCHROMASIA 1+
[2017-07-04 07:29] VITALS: BP 117/88; PULSE 86; TEMP 98.2
[2017-07-04 12:20] VITALS: BP 140/81; PULSE 77; TEMP 98.5
== END 2017-07-04 16:40 | DRG 551 ==
LOC: COL.ER 18:30 → MEDICAL 21:04
PROVIDERS: Emergency Medicine; Internal Medicine Nephrology
PROC: 5A1D70Z Performance of Urinary Filtration, Intermittent, Less than 6 Hours Per Day (ICD-10-PCS; principal; 2017-06-30)
PROC: 5A1D70Z Performance of Urinary Filtration, Intermittent, Less than 6 Hours Per Day (ICD-10-PCS; 2017-07-02)
DX: M51.36 Other intervertebral disc degeneration, lumbar region (principal); N18.6 End stage renal disease; I12.0 Hypertensive chronic kidney disease with stage 5 chronic kidney disease or end stage renal disease; E46 Unspecified protein-calorie malnutrition; Z68.1 Body mass index [BMI] 19.9 or less, adult; R64 Cachexia; N13.6 Pyonephrosis; R11.2 Nausea with vomiting, unspecified; Z99.2 Dependence on renal dialysis; J45.909 Unspecified asthma, uncomplicated; D63.1 Anemia in chronic kidney disease; Z85.41 Personal history of malignant neoplasm of cervix uteri; I25.10 Atherosclerotic heart disease of native coronary artery without angina pectoris; I48.91 Unspecified atrial fibrillation; Z87.891 Personal history of nicotine dependence; G89.29 Other chronic pain
CPT/HCPCS: J0882; J1644; J1956; J2405; J2550

== ENCOUNTER 2017-07-07 18:51 | Emergency (ER) | payer MEDICARE, BC ==
[2009-04-07 04:56] VITALS: BP 143/79
[~2017-07-07] VITALS: Ht 162.6 cm; Wt 51.8 kg
[~2017-07-07 18:51] MED LIST changes: +ERYTHROMYCIN ETHYLSUCCINATE PO; +NEPRO PO; +RENVELA800 MG PO
[2017-07-07 19:02] VITALS: BP 156/97; PULSE 154
[2017-07-07 19:28] LABS: BASO % 0.2 % (0.0-2.0); EOS % 0.4 % (0-4.0); GRAN # 4.1 (1.4-6.5); GRAN % 81.6 % (42.2-75.2); LYMPH # 0.5 (1.2-3.4); LYMPH % 10.6 % (20.0-51.0); MEAN CELL VOLUME 110 fl (80.0-100.0); MEAN CORPUSCULAR HGB CONC 32 g/dl (33.0-37.0); MEAN PLATELET VOLUME 10.3 fl (7.4-10.4); MONO # 0.3 (0.1-0.6); MONO % 5.8 % (1.7-9.3); PLATELET COUNT 82 K/mm3 (130-400); RED BLOOD COUNT 2.64 M/mm3 (4.10-5.30); REDCELL DISTRIBUTION WIDTH-CV 14.6 % (11.5-14.5)
[2017-07-07 19:36] LABS: HEMATOCRIT 29.1 % (37.0-47.0); HEMOGLOBIN 9.3 g/dl (12.5-16.0); MEAN CORPUSCULAR HEMOGLOBIN 35 pg (27.0-31.0)
[2017-07-07 19:41] LABS: ALBUMIN 3.4 gm/dL (3.5-5.0); BILIRUBIN,TOTAL 0.4 mg/dL (0.0-1.0); CALCIUM 8.7 mg/dL (8.4-10.2); CREATININE, serum 1.27 mg/dL (0.52-1.25); MAGNESIUM 1.8 mg/dL (1.6-2.3); PHOSPHOROUS 2.1 mg/dL (2.5-4.5); POTASSIUM 3.6 mmol/L (3.4-5.0); TOTAL PROTEIN 6.5 gm/dL (6.4-8.2)
[2017-07-07 19:53] LABS: TROPONIN-I 0.069 ng/mL (0.000-0.034)
== END 2017-07-07 21:52 | disposition short-term general hospital (02) ==
LOC: COL.ER 18:51
PROVIDERS: Emergency Medicine
DX: I48.91 Unspecified atrial fibrillation (principal); I12.0 Hypertensive chronic kidney disease with stage 5 chronic kidney disease or end stage renal disease; N18.6 End stage renal disease; K56.609 Unspecified intestinal obstruction, unspecified as to partial versus complete obstruction; Z93.2 Ileostomy status; Z98.890 Other specified postprocedural states; Z79.82 Long term (current) use of aspirin
CPT/HCPCS: J2405